=== PATIENT | female | born 1970 | race Caucasian/White ===

== ENCOUNTER → 2017-04-25 | Outpatient (CLI) | payer SELFPAY ==
--- NOTE | 2017-04-25 16:18 | RAD ---
Lumbar spine, 5 views, 04/25/2017: History: Low back pain, right-sided sciatica Comparison is made to a study from 03/14/2006. The lumbar vertebral heights are well-maintained. The intervertebral disc spaces are well preserved. There are mild scattered marginal spurs. There are mild degenerative changes involving the facet joints bilaterally in the lower lumbar spine. There is no evidence of spondylolysis. No fracture or dislocation is evident. IMPRESSION: 1. Mild degenerative change as described above. 2. No acute bony abnormality is detected.
== END | disposition home or self-care (01) ==
LOC: DXRADRC 15:59
PROVIDERS: ATTEND Physician Assistant Medical
DX: M54.41 Lumbago with sciatica, right side (principal); M47.896 Other spondylosis, lumbar region
CPT/HCPCS: 72110

== ENCOUNTER → 2017-06-29 | Outpatient (CLI) | payer OTHER ==
--- NOTE | 2017-06-30 09:04 | RAD ---
Bilateral mammogram Indication: Routine screening. Technique: 2-D and 3-D mammogram of the bilateral breasts. Interpretation was made with the help of CAD. Comparison: There is mammogram from 2012. Findings: Breast density category B: There are scattered areas of fibroglandular density. The skin and nipples are within normal limits. No suspicious calcifications, spiculated masses or areas of architectural distortion. Impression: No mammographic evidence of malignancy. BI-RADS 1: Negative. RECOMMENDED FOLLOW-UP: 12M 12 MONTH FOLLOW-UP PQRS compliance statement: Patient information was entered into a reminder system with a target due date 06/30/2018 for the next mammogram. Mammography is a sensitive method for finding small breast cancers, but it does not detect them all and is not a substitute for careful clinical examination. A negative mammogram does not negate a clinically suspicious finding and should not result in delay in biopsying a clinically suspicious abnormality. "Our facility is accredited by the [employer] Mammography Program."
== END | disposition home or self-care (01) ==
LOC: MAMMO 13:03
PROVIDERS: ATTEND Physician Assistant Medical
DX: Z12.31 Encounter for screening mammogram for malignant neoplasm of breast (principal)
CPT/HCPCS: 77063; G0202; 77067

== ENCOUNTER → 2017-07-06 | Outpatient (CLI) | payer OTHER ==
--- NOTE | 2017-07-06 15:51 | RAD ---
Pelvic ultrasound, 07/06/2017: History: Elevated estrogen levels Transabdominal and transvaginal scans were obtained. The uterus measures 8.8 x 5.5 x 3.8 cm. Small Nabothian cysts are present in the cervix. The central uterine echo complex is mildly thickened measuring 1.1 cm. There is a 2.6 cm hypoechoic mass arising from the left margin of the uterus. This is probably an exophytic uterine fibroid. The adjacent left ovarian cyst contains a septated cyst or cystic cluster measuring 3.7 cm. The right ovary contains a 2 cm cyst. The adnexal regions are otherwise unremarkable. No free fluid is evident in the pelvis. IMPRESSION: 1. Minimal thickening of the central uterine echo complex which may be due to endometrial hyperplasia, although an endometrial polyp cannot be excluded. 2. Probable small uterine fibroid. 3. Small complicated cyst or cyst cluster in the left ovary. 4. Small right ovarian cyst.
== END | disposition home or self-care (01) ==
LOC: US 13:34
PROVIDERS: ATTEND Physician Assistant Medical
DX: N83.201 Unspecified ovarian cyst, right side (principal); N83.202 Unspecified ovarian cyst, left side; N88.8 Other specified noninflammatory disorders of cervix uteri; R89.1 Abnormal level of hormones in specimens from other organs, systems and tissues
CPT/HCPCS: 76830; 76856